=== PATIENT | female | born 1955 | race Caucasian/White ===

== ENCOUNTER → 2017-04-13 | Day surgery (SDC) | payer OTHER ==
[~2017-04-13] MED LIST: ASPIRIN81 M2 PO; ASPIRIN81 MG PO; BASAGLAR K100 UNIT/1 SUBQ; BAYER ASPIRIN325 M1 PO; CARVEDILOL3.125 MG PO; CLOPIDOGREL75 MG PO; DITROPAN; EFFIENT10 MG PO; GLIPIZIDE10 MG PO; GLUCOTROL PO; HYZAAR 100-12.51 TAB PO; JARDIANCE10 MG PO; LANSOPRAZOLE30 M2 PO; LANTUS SOLOSTAR3 ML SQ; LIPITOR PO; LISINOPRIL10 MG PO; LOSARTAN-HCTZ1 EAC2 PO; METFORMIN; METFORMIN HCL1000 M1 PO; MIRALAX17 GM PO; MULTI-VITAMIN1 TAB PO; NEURONTIN100 MG PO; NITROGYLCERIN SUBLINGUAL; OMEPRAZOLE20 M1 PO; PANTOPRAZOLE SO40 MG PO; PLAVIX; REGLAN; RISACAL-D TABL1 EACH PO; TOPROL XL PO; VITAMIN D 4001 UDTAB; VITAMIN D50000 UNIT PO
--- NOTE | ~2017-04-13 | OR ---
Unit #: [id number] #: [id number] Patient: MARIO AHRT [id number] [address] [id number] [id number] MR#: [id number] NAME: MARIO HART ROOM: Date of Procedure: 04/13/2017 Admission Date: 04/13/2017 Surgeon: Nitish Clemons M.D. : 1955 Attending Physician: Nitish Clemons M.D. Primary Care Physician: Raquel Epstein A.P.R.N. OPERATIVE REPORT PREOPERATIVE DIAGNOSES Dysphagia and dyspepsia. PROCEDURES PERFORMED 1. Upper gastrointestinal endoscopy and biopsy. 2. Upper gastrointestinal endoscopy and a dilation using an 18 to 20 mm TTS balloon. POSTOPERATIVE DIAGNOSES 1. The patient had distal esophageal stricture with a classic benign appearance. The latter was dilated using an 18 to 20 mm TTS balloon. 2. Distal grade 3 ulcerative esophagitis with ulceration in the distal esophagus in a confluent manner. 3. Medium-sized hiatus hernia. 4. Short segment of Banda esophagus. There were tongues of columnar mucosa ascending above the gastroesophageal junction and the distal esophagus. These were appropriately biopsied. 5. Mild antral gastritis. 6. Rest of the examination up to third part of duodenum was normal. Biopsies were obtained from the antrum for CLOtest. RECOMMENDATIONS 1. The patient will resume Plavix from tomorrow. 2. Start lansoprazole 30 mg p.o. b.i.d. 3. She will be followed up in the office in 3 months' time. SEDATION USED MAC. DESCRIPTION OF PROCEDURE Following detailed explanation of the potential risks and complications of an upper GI endoscopy namely perforation, bleeding, and complications related to sedation, the patient was brought to GI lab and laid in the left lateral decubitus position. Lubricated tip of the Olympus video upper endoscope was passed through the bite block into the proximal esophagus under direct vision. The entire esophageal mucosa was examined. The patient was noted to have distal confluent ulcerative esophagitis grade 3 severity along with esophageal stricture with a classic benign appearance. In addition, tongues of columnar mucosa were seen ascending above the gastroesophageal junction and the distal esophagus suggestive of short segment of Banda esophagus. The scope was then advanced into the gastric cavity after traversing a medium-sized hiatus hernia. Mucosa of Unit #: [id number] #: [id number] Patient: MARIO HART the fundus, body, and antrum was examined and mild prepyloric antral erythema and gastritis noted. Pylorus was intubated with visualization of the normal duodenal bulb and second and third part of the duodenum. Upon withdrawal and retroflexion; incisura, cardia, and greater curve was examined and biopsy was obtained from the antrum for CLOtest. The scope was then withdrawn in the distal esophagus. Biopsies were obtained from the Banda segment and the distal esophagus and sent for histology. An 18 to 20 mm TTS balloon was passed through the accessory channel of the scope and step-up dilation of the distal esophageal stricture was done. Minimal bleeding was noted after effective dilation. Excellent hemostasis was achieved and photodocumentation was obtained. The scope was then withdrawn all the way up to pharynx. No additional findings were noted. The patient tolerated the procedure without any postprocedure complications. Dictated by... Shayy Mariano/ramiro TD: 04/13/2017 11:53 JOB #: [id number] OPERATIVE REPORT Page 1 of 1 X Nitish Clemons MD X PROCEDURE OPERATIVE NOTE
== END | disposition home or self-care (01) ==
LOC: COPS 06:00
DX: K21.0 Gastro-esophageal reflux disease with esophagitis (principal); K22.70 Barrett's esophagus without dysplasia; K22.2 Esophageal obstruction; K29.70 Gastritis, unspecified, without bleeding; K44.9 Diaphragmatic hernia without obstruction or gangrene; I25.10 Atherosclerotic heart disease of native coronary artery without angina pectoris; I25.2 Old myocardial infarction; N39.3 Stress incontinence (female) (male); Z88.2 Allergy status to sulfonamides; Z87.891 Personal history of nicotine dependence; Z95.5 Presence of coronary angioplasty implant and graft; Z90.49 Acquired absence of other specified parts of digestive tract
CPT/HCPCS: 82947; 87077; 88305